=== PATIENT | female | born 1995 | race Caucasian/White ===

== ENCOUNTER 2018-10-05 13:47 | Emergency (ER) | payer OTHER ==
[~2018-10-05] VITALS: Ht 175.3 cm; Wt 102.1 kg
[2018-10-05 13:52] VITALS: Ht 175.3 cm; Wt 102.1 kg
[2018-10-05] MEDS ORDERED: ACETAMINOPHEN 325 MG TAB PO STA (16:35)
[2018-10-05] MEDS ORDERED: ACET500C5 PO (19:03)
[2018-10-05] MEDS ORDERED: CEPH-443 PO (19:03)
[2018-10-05 19:11] VITALS: BP 126/72; PULSE 68
--- NOTE | 2018-10-06 02:33 | ERD ---
ER Documentation Chief Complaint Chief Complaint Complains of abdominal since this am possibly . HPI 23-year-old female patient with no significant past medical history presents to ED complaining of lower abdominal pain that started this morning and reports that she got 2+ tests for . States that she has had lower abdominal cramps. Describes it as pressure-like. Rates it a 7 out of 10. States that her last menstruation was on August 16, 2018. Patient is a . Denies any vaginal bleeding, vaginal discharge, dysuria, urgency, frequency, hematuria, nausea, vomiting, chest pain, shortness of breath. ROS All systems reviewed and are negative except as per history of present illness. Medications Home Meds Active Scripts Acetaminophen* (Tylophen*) 500 Mg Capsule, 1 CAP PO Q6H PRN for PAIN AND OR ELEVATED TEMP, #20 CAP Prov:CASEY TROY PA-C 10/05/18 Cephalexin* (Keflex*) 500 Mg Capsule, 500 MG PO QID for 7 Days, CAP Prov:CASEY TROY PA-C 10/05/18 PMhx/Soc Medical and Surgical Hx: pt denies Surgical Hx Hx Respiratory Disorders: Yes (childhood asthma) Hx Alcohol Use: No Hx Substance Use: No Hx Tobacco Use: No FmHx Family History: No diabetes, No coronary disease Physical Exam Vitals Vital Signs Date Temp Pulse Resp B/P (MAP) Pulse Ox O2 O2 Flow FiO2 Time Delivery Rate 10/05/18 68 126/72 19:11 (90) 10/05/18 37.6 16:45 10/05/18 99.6 90 20 122/68 97 13:52 (86) Physical Exam Const: [id number], well-nourished. In no acute distress. Head: Atraumatic, normocephalic Eyes: Normal Conjunctiva without injection. No purulent discharge. ENT: Normal external ear, nose. Moist oropharynx without tonsillar exudates. Non-erythematous pharynx. Uvula midline. No drooling. No trismus. Neck: No cervical midline tenderness. Full range of motion. No meningismus. No cervical lymphadenopathy. No JVD. Resp: Clear to auscultation bilaterally. No wheezing, rhonchi, rales, or crack les. No accessory muscle use. No retractions. Cardio: Regular rate and rhythm. No murmurs, rubs or gallops. Abd: Soft, right lower quadrant tenderness, non distended. Normal bowel sounds. No palpable masses. No rebound tenderness. No guarding. Negative McBurney's point. Negative psoas sign. Negative obturator sign. Skin: No petechiae or rashes Back: No midline tenderness. No CVA tenderness. Ext: No cyanosis, or edema. Neur: Awake and alert. Normal gait. Normal coordination. Psych: Normal Mood and Affect Result Diagram: 10/05/184 10/05/18 1654 Results 24 hrs Laboratory Tests Test 10/05/18 16:45 10/05/18 16:54 Urine Color CHIRAG Urine Clarity CLOUDY Urine pH 5.0 Urine Specific [place] 1.032 Urine Ketones NEGATIVE mg/dL Urine Nitrite NEGATIVE mg/dL Urine Bilirubin NEGATIVE mg/dL Urine Urobilinogen NEGATIVE mg/dL Urine Leukocyte Esterase 3+ Catherine/ul Urine Microscopic RBC 9 /HPF Urine Microscopic WBC 107 /HPF Urine Squamous Epithelial Cells MANY /HPF Urine Bacteria FEW /HPF Urine Mucus MODERATE /HPF Urine Hemoglobin NEGATIVE mg/dL Urine Glucose NEGATIVE mg/dL Urine Total Protein 1+ mg/dl White Blood Count 8.6 10^3/ul Red Blood Count 4.72 10^6/ul Hemoglobin 13.0 g/dl Hematocrit 39.7 % Mean Corpuscular Volume 84.1 fl Mean Corpuscular Hemoglobin 27.5 pg Mean Corpuscular Hemoglobin Concent 32.7 g/dl Red Cell Distribution Width 13.3 % Platelet Count 290 10^3/UL Mean Platelet Volume 10.4 fl Immature Granulocytes % 0.600 % Neutrophils % 68.3 % Lymphocytes % 19.9 % Monocytes % 9.2 % Eosinophils % 1.5 % Basophils % 0.5 % Nucleated Red Blood Cells % 0.0 /100WBC Immature Granulocytes # 0.050 10^3/ul Neutrophils # 5.9 10^3/ul Lymphocytes # 1.7 10^3/ul Monocytes # 0.8 10^3/ul Eosinophils # 0.1 10^3/ul Basophils # 0.0 10^3/ul Nucleated Red Blood Cells # 0.0 10^3/ul Sodium Level 139 mmol/L Potassium Level 4.1 mmol/L Chloride Level 107 mmol/L Carbon Dioxide Level 20 mmol/L Anion Gap 12 Blood Urea Nitrogen 15 mg/dl Creatinine 0.69 mg/dl Est Glomerular Filtrat Rate mL/min > 60 mL/min Glucose Level 99 mg/dl Calcium Level 9.9 mg/dl Total Bilirubin 0.0 mg/dl Direct Bilirubin 0.00 mg/dl Indirect Bilirubin 0.0 mg/dl Aspartate Amino Transf (AST/SGOT) 18 IU/L Alanine Aminotransferase (ALT/SGPT) 10 IU/L Alkaline Phosphatase 65 IU/L Total Protein 7.8 g/dl Albumin 4.5 g/dl Globulin 3.30 g/dl Albumin/Globulin Ratio 1.36 Lipase 89 U/L Beta HCG, Quantitative 03021.0 mIU/ml Current Medications Medications Dose Sig/Garett Start Time Status Last (Trade) Ordered Route PRN Stop Time Admin Dose Reason Admin 650 mg ONCE STAT 10/05/18 DC 10/05/18 Acetaminophen PO 16:35 16:45 (Tylenol 10/05/18 16:38 Tab) Procedures/MDM 23-year-old female patient with no significant past medical history presents the ED complaining of abdominal pain during her . Patient is afebrile and nontoxic-appearing. An ultrasound, beta-hCG, CBC, type and RH, UA was ordered to evaluate patient. CBC: No evidence of severe infection or anemia Urine: No elevation in nitrites, 3+ leukocyte esterase, hematuria. She will be treated for urinary tract infection. Rh: O Negative. She is currently not having any vaginal bleeding. No indication for Rhogam at this time. beta Hc IMPRESSION: 1. Appendix not definitely visualized. Therefore, the diagnosis of appendicitis cannot be confidently included nor excluded. IMPRESSION: Single intrauterine gestation of approximate gestational age 6 weeks 5 days by ultrasound criteria with positive heart beat. Small subchorionic hemorrhage Patient has a single IUP of 6 weeks, 5 days. Low suspicion for symptomatic anemia, ectopic , sepsis, PID, appendicitis, ovarian torsion, tubo- ovarian abscess, surgical abdomen, or other emergent conditions. Patient was educated that there is a risk for threatened . Diagnosis: Pelvic Pain During Discharge medications: Tylenol, Keflex Patient to follow up with [facility] in 2 days for further evaluation and treatment. Patient is to return sooner to the ED for any worsening symptoms. Patient's questions were answered. Patient understood and agreed with discharge plan. Disclaimer: Inadvertent spelling and grammatical errors are likely due to EHR/dictation software use and do not reflect on the overall quality of patient care. Also, please note that the electronic time recorded on this note does not necessarily reflect the actual time of the patient encounter. Departure Diagnosis: Primary Impression: Pelvic pain during Condition: Stable Patient Instructions: If You Are Rh Negative, Urinary Tract Infections in Women, Abdominal Pain, Early Referrals: [facility] Usted se sorensen hecho un examen mdico de control que le indica que no est en zeb condicin que requiera tratamiento urgente en el Departamento de Emergencia. Un estudio ms profundo y el tratamiento de cisneros condicin pueden esperar sin ningn riesgo hasta que usted sea atendida/o en el consultorio de cisneros mdico o zeb clnica. Es responsabilidad suya arreglar zeb teresa para el seguimiento del dorcas. MANEJO DE CONDICIONES NO URGENTES EN EL FUTURO 1) Si usted tiene un mdico de atencin primaria: Usted debera llamar a cisneros mdico de atencin primaria antes de venir al departamento de emergencia. Despus de las horas de consultorio, csineros doctor o cisneros asociado/a est disponible por telfono. El mdico o enfermero de titi en el servicio telefnico puede asesorarle por merlin medio para atender el problema, o dorcas contrario se puede programar zeb teresa. 2) Si usted no tiene un mdico de atencin primaria: Llame al mdico o clnica de referencia que aparece abajo sasha las horas de consultorio para hacer zeb teresa para que le vean. CLINICAS: [facility] [phone] [facility] [phone] [facility] [phone] [address] [place] [phone] [facility] [phone] [address] [facility] [phone] [facility] () [place] se sorensen hecho un examen mdico de control que le indica que no est en zeb condicin que requiera tratamiento urgente en el Departamento de Emergencia. Un estudio ms profundo y el tratamiento de cisneros condicin pueden esperar sin ningn riesgo hasta que usted sea atendida/o en el consultorio de cisneros mdico o zeb clnica. Es responsabilidad suya arreglar zeb teresa para el seguimiento del dorcas. MANEJO DE CONDICIONES NO URGENTES EN EL FUTURO 1) Si usted tiene un mdico de atencin primaria: Usted debera llamar a cisneros mdico de atencin primaria antes de venir al departamento de emergencia. Despus de las horas de consultorio, cisneros doctor o cisneros asociado/a est disponible por telfono. El mdico o enfermero de titi en el servicio telefnico puede asesorarle por merlin medio para atender el problema, o dorcas contrario se puede programar zeb teresa. 2) Si usted no tiene un mdico de atencin primaria: Llame al mdico o condado institucions de referencia que aparece abajo sasha las horas de consultorio para hacer zeb teresa para que le vean. SI USTED NO PUEDE PAGAR PARA RON UN MEDICO puede ir a: [facility] [address] [place] [address] [facility] [address] [place] [address] [facility] [address] [place] [address] [facility] [address] [place] [address] [employer] [address] [facility] [address] [place] [address] OFFICE FAX , [facility] [address] [place] [place] [id number]EL, [place] [address] [place] [address] [address] GALLARDO, [facility] [address] [facility] [address] [address]ELLEY, [facility] [address] [place] [address] [facility] [address] [place] [address] [facility] [id number] - [address]RNE, [facility] [address] [facility] [address] [address] HERNÁNDEZ, [facility] [address] [facility], [facility] [address] [address] CRUZ, [facility] [address] [place], [place] [id number] [facility] Hours: 8:00 am - 5:00 pm Additional Instructions: Call your primary care doctor TOMORROW for an appointment during the next 2-3 days.See the doctor sooner or return here if your condition worsens before your appointment time. CASEY TROY PA-C Oct 06, 2018 02:33
== END 2018-10-05 19:12 | disposition home or self-care (01) ==
LOC: FTE 13:47
DX: O26.891 Other specified pregnancy related conditions, first trimester (principal); R10.2 Pelvic and perineal pain; O99.511 Diseases of the respiratory system complicating pregnancy, first trimester; J45.909 Unspecified asthma, uncomplicated; Z3A.01 Less than 8 weeks gestation of pregnancy
CPT/HCPCS: 76705; 76801; 80053; 81001; 83690; 84702; 85025; 86900; 86901; Z7610; 36415